=== PATIENT | female | born 1995 | race Caucasian/White ===

== ENCOUNTER 2017-10-07 17:55 | Emergency (ER) | payer MEDICAID ==
[2017-10-07] MEDS ORDERED: IBUPROFEN 200 MG TAB PO ONE (18:29)
[2017-10-07] MEDS ORDERED: ONDANSETRON DISINTEGRATING 4 MG TAB PO ONE (18:29)
[2017-10-07 18:33] LABS: COLOR YELLOW; LEUKOCYTE ESTERASE,URINE NEGATIVE (NEGATIVE); NITRITE,URINE NEGATIVE (NEGATIVE); PH,URINE 5.5 (5.0-7.5)
--- NOTE | 2017-10-07 19:12 | EDPHY ---
H & P Time Seen by Provider: 10/07/17 18:24 HPI/ROS: This patient complains of left low back pain. She describes this is achy in nature. She took 200 mg of ibuprofen at 4:30 p.m. without significant improvement and came in for evaluation. 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 Due to the indolent onset of symptoms she thought that it might be kidney pain was worried that she might have pyelonephritis that she has had pyelonephritis in the past. ROS: The patient reports a fever earlier that resolved with ibuprofen. No chills. No other constitutional symptoms HEENT: No complaints no URI symptoms. Pulmonary: No cough shortness of breath Cardiovascular: No heart palpitations or other complaints. GI: Patient had some nausea associated with her symptoms and some slight belly cramping. : Mild urinary frequency but she reports she has been drinking lot of fluids. No other urinary symptoms. Integumentary: No skin rash Neuro: No numbness tingling or focal weakness 10 point ROS is otherwise negative Smoking Status: Former smoker Physical Exam: General Appearance: Alert, no distress. Eyes: Pupils equal and round no pallor or injection. ENT, Mouth: Mucous membranes moist. Respiratory: There are no retractions, lungs are clear to auscultation. Cardiovascular: Regular rate and rhythm. Gastrointestinal: Abdomen is soft and nontender, no masses, bowel sounds normal. Back: No CVA tenderness she does have left paraspinous muscular tenderness. Straight leg raise is negative bilaterally. The patient does have increased pain with lateral flexion away from the affected side. She retains good range of motion in forward flexion and back extension Neurological: GCS 15. She maintains 2+ symmetric patellar and Achilles DTRs bilaterally 5/5 strength in great toe dorsiflexion plantar flexion bilaterally. Skin: Warm and dry, no rashes. Musculoskeletal: Neck is supple nontender. Extremities are symmetrical, full range of motion. Psychiatric: Mood and affect normal DIFFERENTIAL DIAGNOSIS: After history and physical exam differential diagnosis was considered for low back strain, UTI/early pyelonephritis, viral illness Constitutional: Initial Vital Signs Temperature (C) 37.4 C 10/07/17 18:25 Heart Rate 90 11/22/17 18:25 Respiratory Rate 18 10/07/17 18:25 Blood Pressure 120/70 10/07/17 18:25 O2 Sat (%) 97 10/07/17 18:25 O2 Delivery Mode Room Air Allergies/Adverse Reactions: No Known Allergies Allergy (Verified 10/07/17 18:23) Home Medications: Medication Instructions Recorded Methocarbamol [Robaxin 750 mg (*)] 750 - 1,500 mg PO QID PRN #30 tab 10/07/17 MDM/Departure - MDM Diagnostics: Urinalysis is normal. Urine is negative Medications Given: Discontinued Medications Ibuprofen (Motrin) 400 mg PO EDNOW ONE Stop: 10/07/17 18:30 Last Admin: 10/07/17 18:45 Dose: 400 mg Ondansetron HCl (Zofran Odt) 4 mg PO EDNOW ONE Stop: 10/07/17 18:30 Last Admin: 10/07/17 18:45 Dose: 4 mg ED Course/Re-evaluation: Findings are most consistent with low back strain from repetitive lifting. I counseled patient regarding this and demonstrated stretches that may assist with her symptoms. We treated her with ibuprofen. She will continue ibuprofen , Tylenol and methocarbamol if needed for back spasms. No evidence of cauda equina, we ruled out UTI, ruled out ectopic . - Depart Disposition: Home, Routine, Self-Care Clinical Impression: Low back strain Qualifiers: Encounter type: initial encounter Qualified Code(s): S39.012A - Strain of muscle, fascia and tendon of lower back, initial encounter Condition: Good Instructions: Low Back Strain (ED) Additional Instructions: DX: Low back strain Plan: Ibuprofen 400-600 mg per 6 hours regularly for the next week then as needed. Methocarbamol muscle relaxants as needed. Tylenol in addition as needed for pain. Starts daily stretches prior to taking muscle relaxants and Vicodin in the morning. 3-5 minutes each of: "Butterfly stretch," "Sphinx stretch", "pigeon stretch", and hamstring stretch. Avoid lifting more than 5-10 pounds until symptoms improve. Call your primary care physician for a followup appointment in 3-7 days. Go to the emergency department for worsening of your symptoms despite the treatment plan. Prescriptions: Methocarbamol [Robaxin 750 mg (*)] 750 - 1,500 mg PO QID PRN #30 tab PRN Reason: Muscle Spasms Referrals: NONE *PRIMARY CARE P,. [Primary Care Provider] - As per Instructions
[2017-10-07 19:21] VITALS: BP 113/69; PULSE 85; RESP 16; TEMP 98.6; O2SAT 96
== END 2017-10-07 19:14 | disposition home or self-care (01) ==
LOC: CED 17:55
DX: S39.012A Strain of muscle, fascia and tendon of lower back, initial encounter (principal); Z87.891 Personal history of nicotine dependence; X58.XXXA Exposure to other specified factors, initial encounter
CPT/HCPCS: 81003-PO; 81025-PO

== ENCOUNTER 2017-11-10 20:00 | Emergency (ER) | payer MEDICAID ==
[2017-11-10 20:14] VITALS: BP 106/77; PULSE 108; RESP 16; TEMP 98.4; O2SAT 95
[2017-11-10] MEDS ORDERED: ACETAMINOPHEN 325 MG TAB PO ONE (20:16)
--- NOTE | 2017-11-10 20:37 | EDPHY ---
H & P Stated Complaint: fatigue,fever,rt ear pain,cough productive green x3 days Time Seen by Provider: 11/10/17 20:11 HPI/ROS: CHIEF COMPLAINT: Cough, sore throat, fever HISTORY OF PRESENT ILLNESS: This is a 22-year-old female who presents with 3 days of fever, cough, sore throat, achiness, and right ear pain. She has not had a flu shot. She has been taking Advil 400 mg every 8 hr, which seems to help with fever. She does not feel short of breath. She has not had chest pain. She denies headache or neck pain. REVIEW OF SYSTEMS: A ten point review of systems was performed and is negative with the exception of the items mentioned in the HPI. Past medical history: Negative Past surgical history: Caesarean section Breast reduction Social history: She lives with a 2-year-old son. She smokes 3 cigarettes per week. She does not drink alcohol. 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 General Appearance: Alert. Vital signs reviewed. Heart rate 108 at triage. Eyes: Pupils equal and round, no conjunctival injection, no discharge. Anicteric. ENT, Mouth: No mastoid tenderness. Mucous membranes are moist, moderate oropharyngeal erythema with tonsillar edema. No exudates. No sinus tenderness. Tympanic membranes are normal bilaterally. External auditory ear canals are normal bilaterally. No swelling in the floor of her mouth. Neck: Bilateral anterior cervical lymphadenopathy, worse on the right, supple/ without meningeal signs. Trachea midline. Respiratory: Lungs are clear to auscultation; no wheezes, rales, or rhonchi. Cardiovascular: Regular rate and rhythm; no murmur, rub, or gallop. Not tachycardic at time of my exam. Gastrointestinal: Abdomen is soft and nontender, no masses or organomegaly, bowel sounds normal. Skin: Warm and dry, no rashes on exposed skin, normal color. Back: Nontender to palpation over the thoracolumbar spine. No CVAT. Extremities: No lower extremity edema, no calf tenderness or swelling. Neurological: Alert and oriented. Moving all four extremities easily and equally. Psychiatric: Normal affect. - Personal History LMP (Females 10-55): 15-21 Days Ago - Medical/Surgical History Hx Asthma: Yes Hx Chronic Respiratory Disease: No Hx Diabetes: No Hx Cardiac Disease: No Hx Renal Disease: No Hx Cirrhosis: No Hx Alcoholism: No Hx HIV/AIDS: No Hx Splenectomy or Spleen Trauma: No Other PMH: Med hx-asthma. Surg-breast augmentation, - Social History Smoking Status: Light smoker Constitutional: Initial Vital Signs Temperature (C) 36.9 C 11/10/17 20:08 Heart Rate 108 H 11/10/17 20:08 Respiratory Rate 16 11/10/17 20:08 Blood Pressure 106/77 11/10/17 20:08 O2 Sat (%) 95 11/10/17 20:08 O2 Delivery Mode Room Air Allergies/Adverse Reactions: No Known Allergies Allergy (Verified 11/10/17 20:07) Home Medications: Medication Instructions Recorded Albuterol Hfa Anes Only 11/10/17 Hydrocodone/APAP 5/325 [[place] 1 - 2 tab PO Q4 PRN #15 tab 11/10/17 5/325 (RX)] Medical Decision Making ED Course/Re-evaluation: 22-year-old with signs and symptoms of influenza. She has 3 days into this illness and would not benefit from I antiviral medication. She is not interested in pursuing flu testing. She does not have convincing evidence of strep pharyngitis--she has a cough and is without exudate. On exam her tympanic membranes appear normal. She does have cervical adenopathy and I think that the ear pain she is experiencing is actually pain from enlarged lymph nodes along the angle of her jaw. I do not suspect retropharyngeal abscess or epiglottitis. No meningeal signs. We discussed symptomatic treatment. We also reviewed the danger signs that should prompt her to be re-evaluated immediately. She is being referred for primary care, she does not have a primary care physician. Differential Diagnosis: Fever in adults including but not limited to pneumonia, urinary tract infection , viral syndrome, and influenza. - Data Points Medications Given: Discontinued Medications Acetaminophen (Tylenol) 650 mg PO EDNOW ONE Stop: 11/10/17 20: Last Admin: 11/10/17 20:21 Dose: 650 mg Departure - Departure Disposition: Home, Routine, Self-Care Clinical Impression: Influenza Condition: Good Instructions: Hydrocodone/Acetaminophen (By mouth), Influenza (ED) Additional Instructions: Drink lots of fluids and get lots of rest. Be sure that you also take in some nutrition. Any of the qygp-[id number] measures are fine for sore throat. I recommend job see throat coat tea with honey added. Adult Pain & Fever Control: We recommend Acetaminophen (Tylenol) and Ibuprofen (Motrin,Advil) for pain and fever control. When fever is high or pain severe, both drugs can be used at the same time, but at different intervals. Please note the time differences. Your dose is: Acetaminophen [650]mg every 4 to 6 hours Ibuprofen [400-600]mg every [6-8] hours with food OR Note: do not take Acetaminophen with Hydrocodone (Vicodin, Lortab) or Oycodone (Percocet). These medications also contain Acetaminophen. No more than 3000mg of Acetaminophen should be taken in 24 hours (for an adult). Use the Vicodin for cough and for pain. As we discussed. If you take additional Tylenol you need to keep track of your dose so that you do not exceed 3000 mg in a 24 hr time period. I am referring you to Dr. Yeung for primary care. I think that you have the flu. We did not do flu testing but you have all of the signs and symptoms. I do not see evidence of near infection. I do not think that you have strep throat. Referrals: Sergio Yeung DO [Medical Doctor] - As per Instructions Prescriptions: Hydrocodone/APAP 5/325 [Powder[place] 5/325 (RX)] 1 - 2 tab PO Q4 PRN #15 tab PRN Reason: pain
[2017-11-10] MEDS ORDERED: HYDROCOD/APAP 5/325 PREPACK#6 BTL TAKEHOME ONE (20:42)
== END 2017-11-10 20:50 | disposition home or self-care (01) ==
LOC: CED 20:00
DX: J11.1 Influenza due to unidentified influenza virus with other respiratory manifestations (principal); J45.909 Unspecified asthma, uncomplicated; F17.200 Nicotine dependence, unspecified, uncomplicated

== ENCOUNTER 2017-12-05 04:45 | Emergency (ER) | payer MEDICAID ==
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
[2017-12-05 04:58] VITALS: BP 132/92; PULSE 88; RESP 16; TEMP 97.7; O2SAT 95
== END 2017-12-05 05:29 | disposition home or self-care (01) ==
LOC: CED 04:45
DX: S06.0X0A Concussion without loss of consciousness, initial encounter (principal); S40.021A Contusion of right upper arm, initial encounter; F17.200 Nicotine dependence, unspecified, uncomplicated; Y08.89XA Assault by other specified means, initial encounter

== ENCOUNTER 2017-12-23 18:00 | Emergency (ER) | payer MEDICAID ==
--- NOTE | 2017-12-23 18:15 | EDPHY ---
H & P HPI/ROS: HPI CHIEF COMPLAINT: Bilateral CVA pain, possible UTI HISTORY OF PRESENT ILLNESS: Patient is a very pleasant 22-year-old female, she is otherwise healthy does have remote history of and breast reduction , she presents emergency room with 1 week of bilateral CVA tenderness. She is unsure she has a UTI. She denies vomiting. She does endorse nausea but no fever. No chest pain or shortness of breath. No significant abdominal pain. Denies blood in her urine vaginal discharge or being . Describes the pain is 4/10. Bilateral CVA. Past Medical History: Denies medical history Past Surgical History: Breast reduction, Social History: Denies daily use drugs alcohol tobacco products. Family History: Noncontributory ROS REVIEW OF SYSTEMS: A comprehensive 10 point review of systems is otherwise negative aside from elements mentioned in the history of present illness. Exam Constitutional appears well nontoxic no acute distress triage nursing summary reviewed, vital signs reviewed, awake/alert. Eyes normal conjunctivae and sclera, EOMI, PERRLA. HENT normal inspection, atraumatic, moist mucus membranes, no epistaxis, neck supple/ no meningismus, no raccoon eyes. Respiratory clear to auscultation bilaterally, normal breath sounds, no respiratory distress, no wheezing. Cardiovascular rate normal, regular rhythm, no murmur, no edema, distal pulses normal. Gastrointestinal no significant abdominal tenderness on exam soft, non-tender, no rebound, no guarding, normal bowel sounds, no distension, no pulsatile mass. Genitourinary very mild CVA tenderness bilaterally on exam. Musculoskeletal no midline vertebral tenderness, full range of motion, no calf swelling, no tenderness of extremities, no meningismus, good pulses, neurovascularly intact. Skin pink, warm, & dry, no rash, skin atraumatic. Neurologic awake, alert and oriented x 3, AAOx3, moves all 4 extremities equally, motor intact, sensory intact, CN II-XII intact, normal cerebellar, normal vision, normal speech. Psychiatric normal mood/affect. Heme/Lymph/Immune no lymphadenopathy. Differential Diagnosis: Includes but is not limited to in a particular, UTI, pyelonephritis, , cystitis, kidney stones Medical Decision Making: Plan for this patient check UA and check urine and re-evaluate. Re-evaluation: 1903: Urinalysis and is negative. No indication of what is causing her bilateral flank pain worse on right than left. Will proceed with basic blood work and CT abdomen pelvis without contrast rule out kidney stone. Patient agreed for this. Negative negative urine. 1950: CT scan abdomen pelvis without contrast negative for acute inflammatory process. Normal appendix. No evidence of kidney stones. Nothing spleen bilateral flank pain I do not have a great explanation for her back pain. May be musculoskeletal. Her blood work is reassuring. Urinalysis does not show infection. She is not . White count normal. Will recommend close follow-up with primary care doctor return emergency room she develops worsening symptoms. Ibuprofen and Tylenol for pain control. She may alternate these every 4-6 hours. Return emergency room if worsening symptoms she understands. Source: Patient - Medical/Surgical History Hx Asthma: Yes Hx Chronic Respiratory Disease: No Hx Diabetes: No Hx Cardiac Disease: No Hx Renal Disease: No Hx Cirrhosis: No Hx Alcoholism: No Hx HIV/AIDS: No Hx Splenectomy or Spleen Trauma: No Other PMH: Med hx-asthma. Surg-breast augmentation, - Social History Smoking Status: Light smoker Constitutional: Initial Vital Signs Temperature (C) 37.1 C 12/23/17 18:13 Heart Rate 108 H 12/23/17 18:13 Respiratory Rate 18 12/23/17 18:13 Blood Pressure 111/77 12/23/17 18:13 O2 Sat (%) 98 12/23/17 18:13 Allergies/Adverse Reactions: No Known Allergies Allergy (Verified 12/23/17 18:21) Home Medications: Medication Instructions Recorded Albuterol Hfa Anes Only 11/10/17 Ibuprofen [Motrin (*)] 800 mg PO Q6-8PRN #10 tab 12/23/17 Medical Decision Making - Data Points Laboratory Results: Laboratory Results 12/23/17 19:18 12/23/17 19:18 12/23/17 12/23/17 12/23/17 19:18 19:18 18:15 WBC 7.81 10^3/uL 10^3/uL (3.80-9.50) RBC 4.93 10^6/uL 10^6/uL (4.18-5.33) Hgb 13.6 g/dL g/dL (12.6-16.3) Hct 40.8 % % (38.0-47.0) MCV 82.8 fL fL (81.5-99.8) MCH 27.6 pg L pg (27.9-34.1) MCHC 33.3 g/dL g/dL (32.4-36.7) RDW 12.9 % % (11.5-15.2) Plt Count 383 10^3/uL 10^3/uL (150-400) MPV 8.0 fL L fL (8.7-11.7) Neut % (Auto) 62.7 % % (39.3-74.2) Lymph % (Auto) 27.4 % % (15.0-45.0) Isabella % (Auto) 7.2 % % (4.5-13.0) Eos % (Auto) 1.8 % % (0.6-7.6) Baso % (Auto) 0.5 % % (0.3-1.7) Nucleat RBC Rel Count 0.0 % % (0.0-0.2) Absolute Neuts (auto) 4.90 10^3/uL 10^3/uL (1.70-6.50) Absolute Lymphs (auto) 2.14 10^3/uL 10^3/uL (1.00-3.00) Absolute Monos (auto) 0.56 10^3/uL 10^3/uL (0.30-0.80) Absolute Eos (auto) 0.14 10^3/uL 10^3/uL (0.03-0.40) Absolute Basos (auto) 0.04 10^3/uL 10^3/uL (0.02-0.10) Absolute Nucleated RBC 0.00 10^3/uL 10^3/uL (0-0.01) Immature Gran % 0.4 % % (0.0-1.1) Immature Gran # 0.03 10^3/uL 10^3/uL (0.00-0.10) Sodium 143 mEq/L mEq/L (135-145) Potassium 3.7 mEq/L mEq/L (3.5-5.2) Chloride 103 mEq/L mEq/L (97-110) Carbon Dioxide 23 mEq/l mEq/l (22-31) Anion Gap 17 mEq/L H mEq/L (8-16) BUN 6 mg/dL L mg/dL (7-23) Creatinine 0.6 mg/dL mg/dL (0.6-1.0) Estimated GFR > 60 Glucose 116 mg/dL H mg/dL (70-100) Calcium 9.9 mg/dL mg/dL (8.5-10.4) Total Bilirubin 0.7 mg/dL mg/dL (0.1-1.4) Conjugated Bilirubin 0.1 mg/dL mg/dL (0.0-0.5) Unconjugated Bilirubin 0.6 mg/dL mg/dL (0.0-1.1) AST 16 IU/L IU/L (14-46) ALT 30 IU/L IU/L (9-52) Alkaline Phosphatase 57 IU/L IU/L (38-126) Total Protein 7.3 g/dL g/dL (6.3-8.2) Albumin 4.4 g/dL g/dL (3.5-5.0) Lipase 204 IU/L IU/L (23-300) Urine Color Urine Appearance Urine pH Ur Specific [place] Urine Protein Urine Ketones Urine Blood Urine Nitrate Urine Bilirubin Urine Urobilinogen Ur Leukocyte Esterase Urine Glucose Urine Test NEGATIVE 12/23/17 18:15 WBC RBC Hgb Hct MCV MCH MCHC RDW Plt Count MPV Neut % (Auto) Lymph % (Auto) Isabella % (Auto) Eos % (Auto) Baso % (Auto) Nucleat RBC Rel Count Absolute Neuts (auto) Absolute Lymphs (auto) Absolute Monos (auto) Absolute Eos (auto) Absolute Basos (auto) Absolute Nucleated RBC Immature Gran % Immature Gran # Sodium Potassium Chloride Carbon Dioxide Anion Gap BUN Creatinine Estimated GFR Glucose Calcium Total Bilirubin Conjugated Bilirubin Unconjugated Bilirubin AST ALT Alkaline Phosphatase Total Protein Albumin Lipase Urine Color YELLOW Urine Appearance CLEAR Urine pH 6.0 (5.0-7.5) Ur Specific [place] 1.015 (1.002-1.030) Urine Protein NEGATIVE (NEGATIVE) Urine Ketones NEGATIVE (NEGATIVE) Urine Blood NEGATIVE (NEGATIVE) Urine Nitrate NEGATIVE (NEGATIVE) Urine Bilirubin NEGATIVE (NEGATIVE) Urine Urobilinogen 0.2 EU EU (0.2-1.0) Ur Leukocyte Esterase NEGATIVE (NEGATIVE) Urine Glucose NEGATIVE (NEGATIVE) Urine Test Medications Given: Discontinued Medications Sodium Chloride (Ns) 1,000 mls @ 0 mls/hr IV EDNOW ONE; Wide Open PRN Reason: Protocol Stop: 12/23/17 19:04 Last Admin: 12/23/17 19:15 Dose: 1,000 mls Departure - Departure Disposition: Home, Routine, Self-Care Clinical Impression: Back pain Qualifiers: Back pain location: low back pain Chronicity: unspecified Back pain laterality : bilateral Sciatica presence: without sciatica Qualified Code(s): M54.5 - Low back pain Condition: Good Instructions: Flank Pain (ED) Additional Instructions: 1. Stay well-hydrated drink lots of fluids. 2. Take ibuprofen for mild pain control. 3. Return emergency room if you have worsening symptoms questions or concerns. Referrals: NONE *PRIMARY CARE P,. [Primary Care Provider] - As per Instructions Prescriptions: Ibuprofen [Motrin (*)] 800 mg PO Q6-8PRN #10 tab
[2017-12-23 18:21] VITALS: TEMP 98.8
[2017-12-23] MEDS ORDERED: NS 1,000 ML IV ONE (19:03)
[2017-12-23 19:22] LABS: PLATELET COUNT 383 10^3/uL (150-400)
[2017-12-23 20:15] VITALS: BP 125/78; PULSE 96; RESP 14; O2SAT 96
== END 2017-12-23 20:15 | disposition home or self-care (01) ==
LOC: CED 18:00
DX: M54.5 Low back pain (principal); J45.909 Unspecified asthma, uncomplicated; F17.200 Nicotine dependence, unspecified, uncomplicated; E86.9 Volume depletion, unspecified
CPT/HCPCS: 74176-PO; 80048-PO; 80076-PO; 81003-PO; 81025-PO; 83690-PO; 85025-PO

== ENCOUNTER 2018-09-01 23:18 | Emergency (ER) | payer MEDICAID ==
--- NOTE | 2018-09-02 00:17 | EDPHY ---
H & P Time Seen by Provider: 09/01/18 23:29 HPI/ROS: CHIEF COMPLAINT: Periumbilical pain, worse for 36 hr - there for 6 days HISTORY OF PRESENT ILLNESS: This is a 22-year-old female who reports having central abdominal pain for approximately 6 days. She was seen at the [facility] ER 2 days ago (though she states was 5 days ago) this whereby she had a normal urinalysis, normal CBC , negative test and was for referred for follow-up. Upon chart review which received 2 Effexor transmission, as the [email or web address] web site is down, she did not have any imaging. This time frame is a little conflicting. The pain started 36 hr ago however upon clinical exam what is evident that she had a blood draw in the right AC at some point in time in the near past, she stated that she went to the [facility] ER 5 days ago. Thereby the pain having started a day or 2 prior to that. However we did receive information from [facility] that shows an encounter record of 2 days ago on August 31. The pain itself is been constant, located in the same spot, that is to say periumbilical, without radiation to the back. She is here tonight as it is getting worse, and also if there is a component of going down to the lower abdomen when it seems to get worse. She did not notice it worse when she was riding in the car here but certainly get an in out of the car was bad enough. She has been able to eat well in fact reports going out to a restaurant having burgers and [place] today for dinner. She has had no vomiting nor loss of appetite no diarrhea or change in bowel habit. He does not use alcohol. No drugs. I asked if she had seen her PCP, she reports that they would have just worried that it was a sexually transmitted disease and a pelvic exam. P: It is worse when she sits but not worse when she was driving in the car, with the bumps in the road Q: Achiness R: Central abdominal, now at times seems to shoot down into the lower midline abdomen S: Moderate to severe T: Unclear as to the clinical time course. With conflicting information. She states it started about 6 7 days ago where as the history was worse as of 636 hr ago and she was seen at the ER at [facility] 2 days ago however that time frame does not match with her 5 days ago - see above FH: mother with sandra at similar age as her, prior to her PMHx: Asthma BCP Breast reduction REVIEW OF SYSTEMS: Constitutional: No fever, no chills. Eyes: No discharge ENT: No sore throat. Cardiovascular: No chest pain, no palpitations. Respiratory: No cough, shortness of breath, or wheezing. Gastrointestinal: No nausea vomiting or diarrhea. No abdominal pain. Genitourinary: No hematuria or frequency. Musculoskeletal: No back pain. Skin: No rashes. Neurological: No headache. A 10 system review of systems was performed and is negative except for the noted findings in the HPI. Source: Patient Exam Limitations: No limitations - Personal History LMP (Females 10-55): Over 28 Days Ago - Medical/Surgical History Hx Asthma: Yes Hx Chronic Respiratory Disease: No Hx Diabetes: No Hx Cardiac Disease: No Hx Renal Disease: No Hx Cirrhosis: No Hx Alcoholism: No Hx HIV/AIDS: No Hx Splenectomy or Spleen Trauma: No Other PMH: Med hx-asthma, . Surg-breast reduction, , TOA surgery February - Family History Significant Family History: Other (mother with sandra prior to her ) - Social History Smoking Status: Light smoker Alcohol Use: None Drug Use: None - Physical Exam Exam: General Appearance: Alert, no distress. Afebrile. Normal phonation. No respiratory distress. Eyes: Pupils equal and round no pallor or injection. No icterus ENT, Mouth: Mucous membranes slightly dry Pharynx without erythema or exudate. TM Clear. Neck: No adenopathy. Supple. No JVD. Trachea in midline. Respiratory: There are no retractions, lungs are clear to auscultation. Cardiovascular: Regular rate and rhythm. Abdomen: Soft, no masses, bowel sounds normal. There is specific tenderness at the umbilical ring chiefly from 10:00. Down to 6:00. There is no bulge however. This area is not aggravated by single regular racing be a right or left. However when she does do both leg raising it causes an aggravation of the pain per se. There is also tenderness to right upper quadrant which is aggravated by deep breathing, with my hand held in place. I.e. Magana sign. Neurological: Ox3. No motor weakness. Sensation intact. Gait nl. Able to stand up straight as well as walk without aggravation of the pain. Skin: Warm and dry, no rashes. There is a bruise in the right antecubital area from recent blood draw or IV administration. She states she was at the ER at [facility] 5 days ago. See above where the history took a change. Musculoskeletal: No joint swelling. Extremities: No edema. Homans sign negative. No cords. Psychiatric: Normal affect. Patient is oriented X 3. There is no agitation Constitutional: Initial Vital Signs Temperature (C) 36.6 C 09/01/18 23:31 Heart Rate 84 09/01/18 23:31 Respiratory Rate 18 09/01/18 23:31 Blood Pressure 119/79 09/01/18 23:31 O2 Sat (%) 96 09/01/18 23:31 O2 Delivery Mode Room Air Allergies/Adverse Reactions: No Known Allergies Allergy (Verified 12/23/17 18:21) Medical Decision Making ED Course/Re-evaluation: As she has had no fluid loss and was hemodynamically stable she did not need fluid resuscitation. Laboratory studies were included as follows: Normal urinalysis Negative test Negative LFTs Normal renal function Normal white count Who was able to receive in fact transmission the recur records from August 31 , at [facility]. There she had a negative basic, CBC, urinalysis, and negative test. Evidently they are concerned for STD as the pelvic exam was entertained however she refused. While she did have umbilical tenderness, there is no mass evident. When I asked her what she was expecting, I also asked her if she had checked on the Internet as to what may be wrong. She stated that the differential she was given on the Internet include umbilical hernia versus appendicitis. She was dismissive of the idea of this being an STD/PID. All-in-all I would have to agree. The liver functions were checked as part of the comprehensive panel due to the right upper quadrant Magana sign. This was negative This exam and clinical course is not compatible with appendicitis and her white count is normal. Further, an STD/PID is a possibility, but rather unlikely, and is far less likely than the umbilical hernia. While I do not feel a hernia mass, I do certainly feel a hernia defect and is clinically tender and reproduces symptoms. Differential Diagnosis: Differential diagnosis includes, but is not limited to: Gastroenteritis, dehydration, diverticulitis, hepatitis, pancreatitis, renal colic, kidney stones, ureterolithiasis, cholecystitis, appendicitis, gastritis, mesenteric adenitis, PID. - Data Points Laboratory Results: Laboratory Results 09/02/18 00:19 Point of Care Test Results: Chemistry 09/02/18 00:03 POC Sodium 143 mEq/L mEq/L (135-145) POC Potassium 4.0 mEq/L mEq/L (3.3-5.0) POC Chloride 108.0 mEq/L mEq/L (97-110) POC Total CO2 24 mEq/L mEq/L (22-31) POC BUN 13 mg/dL mg/dL (7-23) POC Creatinine 0.6 mg/dL mg/dL (0.6-1.0) POC Glucose 98 mg/dL mg/dL (70-100) POC Calcium 10.1 mg/dL mg/dL (8.5-10.4) POC Total Bilirubin 0.7 mg/dL mg/dL (0.1-1.4) POC AST 31 IU/L IU/L (14-46) POC ALT 29 IU/L IU/L (9-52) POC Alk Phosphatase 45 IU/L IU/L (38-126) POC Total Protein 7.8 g/dL g/dL (6.3-8.2) POC Albumin 4.0 g/dL g/dL (3.5-5.0) Urine Collection Date 09/01/18 Collection Time 23:35 HCG Results Negative Urine Dip Collection Date 09/01/18 Collection Time 23:35 Specific [place] (1.002-1.030) 1.020 PH (5.0-7.5) 7.0 Leukocytes (Negative) Negative Nitrites (Negative) Negative Protein (Negative) Negative Glucose (Negative) Negative Ketones (Negative) Negative Urobilnogen (0.2-1.0 EU) 0.2 Bilirubin (Negative) Negative Blood (Negative) Negative Departure - Departure Disposition: Home, Routine, Self-Care Clinical Impression: Abdominal pain Qualifiers: Abdominal location: periumbilical Qualified Code(s): R10.33 - Periumbilical pain Umbilical hernia Qualifiers: Obstruction and gangrene presence: without obstruction or gangrene Qualified Code(s): K42.9 - Umbilical hernia without obstruction or gangrene Condition: Good Instructions: Umbilical Hernia (ED), Acute Abdominal Pain (ED) Additional Instructions: We referred you to Dr. Mccloud, general surgery. It is imperative that she call them and be seen within the week to confirm the diagnosis and established treatment plan. In the interim, I expect the pain will continue, however, I do not expected to get any worse. If it is getting worse, such as fever more pain or abdominal distention or nausea vomiting then return to the ER immediately. For pain management: Tylenol and Advil works well together the combination: Tylenol 1000 mg and 400 mg every 8 hours as needed for the pain. In the mean time avoid using the abdominal muscles such as how I described getting up from bed. Also, avoid any one with the common cold, as you would definitely get worse if you developed a cough! Referrals: Esequiel Mccloud MD [Medical Doctor] - As per Instructions
[2018-09-02 01:06] LABS: PLATELET COUNT 400 10^3/uL (150-400)
[2018-09-02 01:44] VITALS: BP 110/62
== END 2018-09-02 01:42 | disposition home or self-care (01) ==
LOC: CED 23:18
DX: R10.33 Periumbilical pain (principal); K42.9 Umbilical hernia without obstruction or gangrene; J45.909 Unspecified asthma, uncomplicated; F17.200 Nicotine dependence, unspecified, uncomplicated
CPT/HCPCS: 80053-PO

== ENCOUNTER 2019-03-06 20:19 | Emergency (ER) | payer MEDICAID ==
[2019-03-06 20:38] VITALS: BP 105/83
[2019-03-06] MEDS ORDERED: DEXAMETHASONE 4 MG TAB PO ONE (20:46)
[2019-03-06] MEDS ORDERED: IBUPROFEN 800 MG TAB PO ONE (20:46)
--- NOTE | 2019-03-06 20:52 | EDPHY ---
H & P Time Seen by Provider: 03/06/19 20:35 HPI/ROS: HPI Sore throat. 23-year-old female by private vehicle with her kids. This patient complains of a sore throat with intermittent fevers and swollen glands ongoing for 1 week now. Denies ill contacts. States throat pain is worse with swallowing but is able to swallow without significant difficulty. No voice changes. No difficulty breathing. ROS: Constitutional: As above, no chills. No weakness. Eyes: No discharge. No changes in vision. ENT: As above. No nasal congestion or rhinorrhea. Respiratory: No cough. No shortness of breath. Cardiac: No chest pain, no palpitations. Gastrointestinal: No abdominal pain, no vomiting, no diarrhea. Musculoskeletal: No back pain. No neck pain. No myalgias or arthralgias. Skin: No rashes. Neurological: No headache. No focal weakness or altered sensation. Past medical history: Asthma, breast reduction surgery, , ovarian cyst. Social history: Nonsmoker. Here with her child. No alcohol. Physical Exam: General Appearance: Alert, no distress. This patient is responding to questions appropriately and in full sentences. This patient appears well- hydrated and well-nourished. Eyes: Pupils equal and round no pallor or injection. No lid edema, erythema or injection. ENT, Mouth: Mucous membranes are moist. She has large tonsils but they do not appear edematous. No asymmetry suggestive of abscess. No erythema or exudates. No voice changes. No stridor on auscultation of her neck. No significant cervical, submandibular, submental lymphadenopathy. Respiratory: There are no retractions, lungs are clear to auscultation with good air movement bilaterally. Cardiovascular: Regular rate and rhythm. No murmur. Neurological: Motor sensory function is grossly intact. Cranial nerves are normal. Gait is normal. Skin: Warm and dry, no rashes. Musculoskeletal: Neck is supple and nontender. No pain on flexion of her neck. Extremities are symmetrical. All joints range without pain or impingement. Psychiatric: No agitation. No depression. Database: EKG: Imaging: Procedures: Emergency department course: Triage vital signs reviewed and are normal. Rapid strep to be obtained. Likely viral pharyngitis. Lack of exudates is inconsistent with mononucleosis. She will be given ibuprofen and oral Decadron. 9:10 p.m., the patient was re-evaluated, she is resting comfortably at this time. Rapid strep is negative. She feels comfortable going home and I feel she is safe for discharge. I discussed ibuprofen dosing as well as oral hydration and supportive care. Follow-up and return to emergency department precautions were reviewed. All of her questions were answered. She was discharged in good condition with her significant other. Differential Diagnosis: The differential diagnosis on this patient includes but is not limited to viral pharyngitis. Streptococcal pharyngitis, mononucleosis, epiglottitis, tracheitis , peritonsillar abscess, retropharyngeal abscess unlikely. This represents a partial list of diagnoses considered. These considerations are based on history , physical exam, past history, reassessment and diagnostic testing. Smoking Status: Former smoker Constitutional: Initial Vital Signs Temperature (C) 37.1 C 03/06/19 20:32 Heart Rate 88 03/06/19 20:32 Respiratory Rate 14 03/06/19 20:32 Blood Pressure 105/83 H 03/06/19 20:32 O2 Sat (%) 94 03/06/19 20:32 O2 Delivery Mode Room Air Allergies/Adverse Reactions: No Known Allergies Allergy (Verified 03/06/19 20:31) Home Medications: Medication Instructions Recorded NK [No Known Home Meds] 03/06/19 Medical Decision Making - Data Points Medications Given: Discontinued Medications Dexamethasone (Decadron) 8 mg PO EDNOW ONE Stop: 03/06/19 20:47 Last Admin: 03/06/19 20:52 Dose: 8 mg Ibuprofen (Motrin) 800 mg PO EDNOW ONE Stop: 03/06/19 20:47 Last Admin: 03/06/19 20:51 Dose: 800 mg Point of Care Test Results: Strep Strep Throat Swab Collection 03/06/19 Date Strep Throat Swab Swab 20:50 Collection Time Strep Result Not Detected Departure - Departure Disposition: Home, Routine, Self-Care Clinical Impression: Pharyngitis Condition: Good Instructions: Pharyngitis (ED) Additional Instructions: Read and follow provided instructions. Follow-up with your primary care physician in 1-2 days for re-evaluation as discussed. Ibuprofen dosin mg every 6 hours with meals for the next 3 days only. Take only as needed for pain. Stay well hydrated. Return to the emergency department for worsening symptoms, worsening throat pain , voice changes, stridor, difficulty swallowing, difficulty breathing or other serious concerns. Referrals: NONE *PRIMARY CARE P,. [Primary Care Provider] - As per Instructions
== END 2019-03-06 21:20 | disposition home or self-care (01) ==
LOC: CED 20:19
DX: J02.9 Acute pharyngitis, unspecified (principal); J45.909 Unspecified asthma, uncomplicated
CPT/HCPCS: 87880-QW-ER; 99283-ER